=== PATIENT | female | born 1950 | race Caucasian/White ===

== ENCOUNTER 2023-01-20 14:40 | Outpatient (CLI) | payer MEDICARE, SELFPAY ==
--- NOTE | 2023-01-20 14:53 | CTR_ITS ---
PROCEDURE INFORMATION: Exam: CT Chest With Contrast; Diagnostic Exam date and time: 01/20/2023 3:43 PM Age: 72 years old Clinical indication: Other: 40 lbs wt loss in 2 months; Additional info: Unintentional weight loss TECHNIQUE: Imaging protocol: Diagnostic computed tomography of the chest with contrast. Radiation optimization: All CT scans at this facility use at least one of these dose optimization techniques: automated exposure control; mA and/or kV adjustment per patient size (includes targeted exams where dose is matched to clinical indication); or iterative reconstruction. Contrast material: OMNI 350; Contrast volume: 95 ml; Contrast route: INTRAVENOUS (IV); REPORTING DATA: Count of CT and Cardiac NM exams in prior 12 months: This patient has received 0 known CTs and 0 known cardiac nuclear medicine studies in the 12 months prior to the current study. COMPARISON: CR XR chest 2V* [id number] 12/31/2022 10:37 AM RADIATION DOSE METRICS: Total DLP (mGy-cm): 194.7 FINDINGS: Lungs: Minor atelectatic changes left lingula otherwise lung plasencia are aerated and clear. No suspicious nodules masses or infiltrates. Pleural spaces: Unremarkable. No pneumothorax. No pleural effusion. Heart: Heart is not significantly enlarged. There are mild calcifications of the coronary artery. No significant pericardial effusion. Lymph nodes: Scattered small mediastinal lymph nodes likely benign by size criteria. No significant hilar or axillary lymphadenopathy. Vasculature: Diffuse atherosclerotic changes of the thoracic aorta with calcified and noncalcified plaque. No aortic aneurysm. Bones/joints: Moderate degenerative changes mid lower thoracic spine. Indistinct sclerotic bone lesion lateral aspect left 6th rib best seen in the sagittal projection possibly posttraumatic in nature but otherwise nonspecific. Soft tissues: Unremarkable. CT/CT chest w con* [id number] IMPRESSION: 1. No evidence of intrathoracic malignancy. 2. Small indistinct sclerotic bone lesion left 6th rib possibly posttraumatic in nature. In view of patient's history consider follow-up nonemergent bone scan for further assessment.
[2023-01-20] MEDS: iohexol 350 mg/mL 500 mL Btl (per mL) IV (15:48)
== END 2023-01-20 14:41 | disposition home or self-care (01) ==
PROVIDERS: Absent Provider Nurse Practitioner Family; Visit Provider Nurse Practitioner Family
DX: R63.4 Abnormal weight loss (principal); M89.9 Disorder of bone, unspecified
CPT/HCPCS: 71260; Q9967

== ENCOUNTER 2025-03-10 21:31 | Inpatient (IN) | payer MEDICARE, SELFPAY ==
[2025-03-10 21:33] VITALS: BP 169/84; PULSE 96; RESP 18; TEMP 36.7; O2SAT 93; BMI 26.5
[2025-03-10 22:04] LABS: Basophils # 0.1 10^3/uL (0.0-0.1); Basophils % 0.5 %; Eosinophils # 0.1 10^3/uL (0.0-0.8); Eosinophils % 0.7 %; Lymphocytes # 1.9 10^3/uL (0.8-4.8); Mean Corpuscular HGB Conc 33.3 g/dL (30-55); Mean Corpuscular Hemoglobin 32.8 pg (27-33); Mean Corpuscular Volume 98.3 fl (85-98); Mean Platelet Volume 10.1 fL (7.4-10.4); Monocytes % 10.7 %; Neutrophils # 6.12 10^3/uL (1.8-7.7); Neutrophils % 66.8 %; Nucleated Red Blood Cells % 0 %; Platelet Count 223 10^3/cmm (157-399); Red Blood Count 4.58 10^6/uL (3.85-5.65); Red Cell Distribution Width 14.8 % (12.1-15.1); White Blood Count 9.16 10^3/uL (3.29-11.43)
[2025-03-10 22:18] LABS: Alanine Aminotransferase 9 U/L (0-33); Alkaline Phosphatase 110 U/L (35-105); Aspartate Amino Transferase 23 U/L (0-32); Blood Urea Nitrogen 9 mg/dL (8-23); Calcium 9.1 mg/dL (8.5-10.5); Carbon Dioxide 25 mmol/L (22-29); Chloride 94 mmol/L (98-107); Creatinine Clr Calc Pharmacy 56.5641; Globulin 3.1 g/dL (1.3-4.6); Glucose 102 mg/dL (65-115); Lipase 24 U/L (13-60); Osmolality Calculated 271 mOsm/kg (285-295); Sodium 131 mmol/L (136-145); Total Bilirubin 0.3 mg/dL (0.15-1.2); Total Protein 7.1 g/dL (6.6-8.7)
--- NOTE | 2025-03-10 22:38 | ED_ITS ---
Documented by User: Whitney Godoy MD 03/10/25 22:43 HPI - Nausea/Vomiting/Diarrhea 2 General: Chief complaint: Nausea/Vomiting/Diarrhea Stated complaint: n/v believes reaction to meds Time Seen by Provider: 03/10/25 22:25 Source: patient Mode of arrival: ambulatory Limitations: no limitations History of Present Illness: 74-year-old female states that she taken some sfzo-wfo-ydonhiq nerve pills last night called eladiay she also ate some chili states that since then she has had some abdominal cramping along with vomiting. She denies any pain denies any fever or diarrhea denies any worse or improving factors. Associated nausea: Yes Associated symtoms: Reports nausea; Denies chest pain or headache(s) Related Data Allergies Allergy/AdvReac Type Severity Reaction Status Date / Time No Known Allergies Allergy Verified 03/10/25 21:44 Review of Systems 2 Const: Denies: fever(s), chills, body aches or change in appetite ENMT: Denies: throat pain or dental pain Card: Denies: chest pain Resp: Denies: dyspnea GI: Reports: nausea and vomiting; Denies: abdominal pain or diarrhea Musc: Denies: neck pain or back pain Skin/Breast: Denies: rash Neuro: Denies: headache(s) Physical Exam 2 Const: COMMON NORMALS: no acute distress, patient oriented x3 and healthy appearing HENMT: COMMON NORMALS: normocephalic and atraumatic HEAD & SCALP: n ormocephalic and atraumatic Eye: COMMON NORMALS: conjunctivae normal CONJUNCTIVA: Yes conjunctivae normal Neck/C-Spine: COMMON NORMALS: full ROM and supple Chest: COMMONS NORMALS: normal inspection of the chest Resp: COMMON NORMALS: normal respiratory effort Cardio: COMMON NORMALS: regular rate, regular rhythm and No murmurs present (Cardio) RATE: regular rate RHYTHM: regular rhythm GI: COMMON NORMALS: Normal to inspection, nondistended, normoactive bowel sounds present, Soft to palpation, non-tender and no masses PALPATION: Yes Soft to palpation Extremity: COMMON NORMALS: normal to inspection and full ROM Neuro: COMMON NORMALS: patient oriented x3, moves all extremities and no focal motor deficits Psych: COMMON NORMALS: mental status grossly normal, Normal thought process present and cooperative THOUGHT PROCESS: Normal thought process present Skin: COMMON NORMALS: no rashes or lesions noted and no wounds GENERAL SKIN EXAM: no rashes or lesions noted Course 2 Vital Signs: Vital signs: Vital Signs Temperature 98.1 F 03/10/25 21:33 Pulse Rate 87 03/11/25 00:46 Respiratory Rate 16 03/11/25 00:46 Blood Pressure 130/85 03/11/25 00:46 Pulse Oximetry 93 03/11/25 00:46 Oxygen Delivery Me thod Nasal Cannula 03/11/25 00:46 Oxygen Flow Rate 2 03/11/25 00:46 MDM - Nausea/Vomiting/Diarrhea Lab Data 03/10/25 21:55 03/10/25 21:55 Radiology Impressions Abdomen/Pelvis CT 03/10/25 22:57 IMPRESSION: 1. No acute abdominopelvic findings. 2. Bilateral nonobstructive nephrolithiasis. 3. 8 mm hypodensity at the left ventricular apex could represent thrombus. Consider echocardiogram. 4. Additional chronic and incidental findings as above, to include atherosclerosis and colonic diverticulosis. Laboratory Results WBC 9.16 10^3/uL (3.29-11.43) 03/10/25 21:55 RBC 4.58 10^6/uL (3.85-5.65) 03/10/25 21:55 Hgb 15.00 g/dL (11.27-16.99) 03/10/25 21:55 Hct 45.0 % (36-47) 03/10/25 21:55 MCV 98.3 fl (85-98) H 03/10/25 21:55 MCH 32.8 pg (27-33) 03/10/25 21:55 MCHC 33.3 g/dL (30-55) 03/10/25 21:55 RDW 14.8 % (12.1-15.1) 03/10/25 21:55 Plt Count 223 10^3/cmm (157-399) 03/10/25 21:55 MPV 10.1 fL (7.4-10.4) 03/10/25 21:55 Neut % (Auto) 66.8 % 03/10/25 21:55 Lymph % (Auto) 21.0 % 03/10/25 21:55 [place] % (Auto) 10.7 % 03/10/25 21:55 Eos % (Auto) 0.7 % 03/10/25 21:55 Baso % (Auto) 0.5 % 03/10/25 21:55 Neut # (Auto) 6.12 10^3/uL (1.8-7.7) 03/10/25 21:55 Lymph # (Auto) 1.9 10^3/uL (0.8-4.8) 03/10/25 21:55 [place] # (Auto) 1.0 10^3/uL (0.2-0.9) H 03/10/25 21:55 Eos # (Auto) 0.1 10^3/uL (0.0-0.8) 03/10/25 21:55 Baso # (Auto) 0.1 10^3/uL (0.0-0.1) 03/10/25 21:55 Nucleated RBC % (auto) 0 % 03/10/25 21:55 Nucleated RBCs # 0.0 /100WBC 03/10/25 21:55 Sodium 131 mmol/L (136-145) L 03/10/25 21:55 Potassium 4.0 mmol/L (3.5-5.1) 03/10/25 21:55 Chloride 94 mmol/L (98-107) L 03/10/25 21:55 Carbon Dioxide 25 mmol/L (22-29) 03/10/25 21:55 Anion Gap 16.0 (5-19) 03/10/25 21:55 BUN 9 mg/dL (8-23) 03/10/25 21:55 Creatinine 0.6 mg/dL (0.5-0.9) 03/10/25 21:55 GFR Calculation Not Reportable 03/10/25 21:55 Glucose 102 mg/dL (65-115) 03/10/25 21:55 Calculated Osmolality 271 mOsm/kg (285-295) L 03/10/25 21:55 Calcium 9.1 mg/dL (8.5-10.5) 03/10/25 21:55 Total Bilirubin 0.3 mg/dL (0.15-1.2) 03/10/25 21:55 AST 23 U/L (0-32) 03/10/25 21:55 ALT 9 U/L (0-33) 03/10/25 21:55 Alkaline Phosphatase 110 U/L (35-105) H 03/10/25 21:55 Total Protein 7.1 g/dL (6.6-8.7) 03/10/25 21:55 Albumin 4.0 g/dL (3.5-5.2) 03/10/25 21:55 Globulin 3.1 g/dL (1.3-4.6) 03/10/25 21:55 Lipase 24 U/L (13-60) 03/10/25 21:55 Discharge Plan Discharge Patient Disposition: Placed in Observation Clinical Impression: Acute thrombus of left ventricle, Gastroenteritis Coding Level of Care Code ED Ingot Header for Chg Fwd Documented by User: Sanju Condon MD 03/11/25 01:33 HPI - Nausea/Vomiting/Diarrhea 2 General: Chief complaint: Nausea/Vomiting/Diarrhea Stated complaint: n/v believes reaction to meds Time Seen by Provider: 03/10/25 22:25 Related Data Allergies Allergy/AdvReac Type Severity Reaction Status Date / Time No Known Allergies Allergy Verified 03/10/25 21:44 Course 2 Vital Signs: Vital signs: Vital Signs Temperature 98.1 F 03/10/25 21:33 Pulse Rate 87 03/11/25 00:46 Respiratory Rate 16 03/11/25 00:46 Blood Pressure 130/85 03/11/25 00:46 Pulse Oximetry 93 03/11/25 00:46 Oxygen Delivery Me thod Nasal Cannula 03/11/25 00:46 Oxygen Flow Rate 2 03/11/25 00:46 MDM - Nausea/Vomiting/Diarrhea Medical Decision Making Patient presents emerged part with complaint of gastroenteritis-like symptoms with midepigastric abdominal pain. His been having nausea and vomiting and diarrhea. Had a CT of the chest abdomen pelvis performed that showed an incidental finding of a left ventricular thrombus. Echocardiogram was performed and does indeed appear to be positive for thrombus per my interpretation. Do not have official cardiology read on the echo back yet but we will go and start patient on heparin and admit patient to the hospitalist until can be further evaluated. Lab Data 03/10/25 21:55 03/10/25 21:55 Radiology Impressions Abdomen/Pelvis CT 03/10/25 22:57 IMPRESSION: 1. No acute abdominopelvic findings. 2. Bilateral nonobstructive nephrolithiasis. 3. 8 mm hypodensity at the left ventricular apex could represent thrombus. Consider echocardiogram. 4. Additional chronic and incidental findings as above, to include atherosclerosis and colonic diverticulosis. Laboratory Results WBC 9.16 10^3/uL (3.29-11.43) 03/10/25 21:55 RBC 4.58 10^6/uL (3.85-5.65) 03/10/25 21:55 Hgb 15.00 g/dL (11.27-16.99) 03/10/25 21:55 Hct 45.0 % (36-47) 03/10/25 21:55 MCV 98.3 fl (85-98) H 03/10/25 21:55 MCH 32.8 pg (27-33) 03/10/25 21:55 MCHC 33.3 g/dL (30-55) 03/10/25 21:55 RDW 14.8 % (12.1-15.1) 03/10/25 21:55 Plt Count 223 10^3/cmm (157-399) 03/10/25 21:55 MPV 10.1 fL (7.4-10.4) 03/10/25 21:55 Neut % (Auto) 66.8 % 03/10/25 21:55 Lymph % (Auto) 21.0 % 03/10/25 21:55 [place] % (Auto) 10.7 % 03/10/25 21:55 Eos % (Auto) 0.7 % 03/10/25 21:55 Baso % (Auto) 0.5 % 03/10/25 21:55 Neut # (Auto) 6.12 10^3/uL (1.8-7.7) 03/10/25 21:55 Lymph # (Auto) 1.9 10^3/uL (0.8-4.8) 03/10/25 21:55 [place] # (Auto) 1.0 10^3/uL (0.2-0.9) H 03/10/25 21:55 Eos # (Auto) 0.1 10^3/uL (0.0-0.8) 03/10/25 21:55 Baso # (Auto) 0.1 10^3/uL (0.0-0.1) 03/10/25 21:55 Nucleated RBC % (auto) 0 % 03/10/25 21:55 Nucleated RBCs # 0.0 /100WBC 03/10/25 21:55 Sodium 131 mmol/L (136-145) L 03/10/25 21:55 Potassium 4.0 mmol/L (3.5-5.1) 03/10/25 21:55 Chloride 94 mmol/L (98-107) L 03/10/25 21:55 Carbon Dioxide 25 mmol/L (22-29) 03/10/25 21:55 Anion Gap 16.0 (5-19) 03/10/25 21:55 BUN 9 mg/dL (8-23) 03/10/25 21:55 Creatinine 0.6 mg/dL (0.5-0.9) 03/10/25 21:55 GFR Calculation Not Reportable 03/10/25 21:55 Glucose 102 mg/dL (65-115) 03/10/25 21:55 Calculated Osmolality 271 mOsm/kg (285-295) L 03/10/25 21:55 Calcium 9.1 mg/dL (8.5-10.5) 03/10/25 21:55 Total Bilirubin 0.3 mg/dL (0.15-1.2) 03/10/25 21:55 AST 23 U/L (0-32) 03/10/25 21:55 ALT 9 U/L (0-33) 03/10/25 21:55 Alkaline Phosphatase 110 U/L (35-105) H 03/10/25 21:55 Total Protein 7.1 g/dL (6.6-8.7) 03/10/25 21:55 Albumin 4.0 g/dL (3.5-5.2) 03/10/25 21:55 Globulin 3.1 g/dL (1.3-4.6) 03/10/25 21:55 Lipase 24 U/L (13-60) 03/10/25 21:55 XR interpretation done by ED provider, pending radiology final review Discharge Plan Discharge Patient Disposition: Placed in Observation Clinical Impression: Acute thrombus of left ventricle, Gastroenteritis Coding Level of Care Code ED Ingot Header for Keenan Lima
[2025-03-10] MEDS: ondansetron 2 mg/ML SDV 2 mL 4 MG IVP (22:41)
[2025-03-10 22:43] VITALS: BP 144/84; PULSE 78; O2SAT 91
[2025-03-10] MEDS: sodium chloride 0.9% 1,000 ML 999 ML IV (22:43)
--- NOTE | 2025-03-10 22:57 | CTR_ITS ---
PROCEDURE INFORMATION: Exam: CT Abdomen And Pelvis With Contrast Exam date and time: 03/10/2025 11:40 PM Age: 74 years old Clinical indication: Nausea and vomiting; Abdominal pain; Generalized; Diffuse abd pain with n/v. TECHNIQUE: Imaging protocol: Computed tomography of the abdomen and pelvis with contrast. Radiation optimization: All CT scans at this facility use at least one of these dose optimization techniques: automated exposure control; mA and/or kV adjustment per patient size (includes targeted exams where dose is matched to clinical indication); or iterative reconstruction. Contrast material: OMNI 350; Contrast volume: 100 ml; Contrast route: INTRAVENOUS (IV); COMPARISON: CT chest w con* [id number] 01/20/2023 3:43 PM RADIATION DOSE METRICS: Total DLP (mGy-cm): 567.11 FINDINGS: Lungs: Mild subsegmental atelectasis versus scarring of the imaged lower lungs. Heart: 8 mm hypodensity at the left ventricular apex on axial image 3 of series 3. Coronary arteries: Coronary artery calcification. Liver: Focal hypodensity adjacent to the fissure for the ligamentum teres likely represents 3rd inflow phenomenon or focal fat. Otherwise unremarkable. Gallbladder and biliary ducts: Normal. No calcified stones. No ductal dilation. Pancreas: Normal. No ductal dilation. Spleen: Normal. No splenomegaly. Adrenal glands: Normal. No mass. Kidneys and ureters: Small bilateral renal calculi without hydronephrosis. Otherwise unremarkable. Stomach and bowel: No bowel dilatation to suggest obstruction. Colonic diverticulosis without findings of diverticulitis. Appendix: No evidence of appendicitis. Intraperitoneal space: Unremarkable. No free air. No significant fluid collection. Vasculature: Heavy systemic atherosclerosis without abdominal aortic aneurysm. Lymph nodes: Unremarkable. No enlarged lymph nodes. Urinary bladder: Unremarkable as visualized. Reproductive: Unremarkable as visualized. Bones/joints: No acute fracture. Degenerative changes along the spine and sacroiliac joints. Soft tissues: Unremarkable. CT/CT abdomen pelvis w con* [id number] IMPRESSION: 1. No acute abdominopelvic findings. 2. Bilateral nonobstructive nephrolithiasis. 3. 8 mm hypodensity at the left ventricular apex could represent thrombus. Consider echocardiogram. 4. Additional chronic and incidental findings as above, to include atherosclerosis and colonic diverticulosis.
[2025-03-10 23:00] VITALS: BP 145/83; PULSE 78; O2SAT 91
[2025-03-10] MEDS: iohexol 350 mg/mL 500 mL Btl (per mL) IV (23:44)
[2025-03-11] VITALS (57 sets, daily range): BP systolic 120–176; BP diastolic 57–110; PULSE 64–101; RESP 12–34; TEMP 36.9–37; O2SAT 82–99
[2025-03-11] MEDS: morphine 4 mg/mL SDV 1 mL IVP (00:06)
--- NOTE | 2025-03-11 00:23 | USCV_ITS ---
Yvette Valdez Age: 74 Gender: F : 1950 Exam Date: 03/11/2025 01:07 Ordering Phys: Sanju Condon MD Technologist: CHARMAINE [place]am [place] [facility] [place]ication: Hypodensity on CT in LV BP: 117 / 72 HR: 63 Rhythm: Sinus Technical Quality: Adequate MEASUREMENTS (Male / Female) Normal Values 2D ECHO LV Diastolic Diameter PLAX 4.7 cm 4.2 - 5.9 / 3.9 - 5.3 cm IVS Diastolic Thickness 1.1 cm 0.6 - 1.0 / 0.6 - 0.9 cm IVS Systolic Thickness 1.3 cm LVPW Diastolic Thickness 1.3 cm 0.6 - 1.0 / 0.6 - 0.9 cm LVPW Systolic Thickness 1.6 cm LVOT Diameter 1.9 cm LV Ejection Fraction 2D Teich 51.8 % LV Ejection Fraction MOD 4C 51.8 % LV Ejection Fraction MOD 2C 49.6 % LV Ejection Fraction 2C AL 49.0 % LA Diameter 3.6 cm RA Systolic Volume 4C AL 28.0 ml RA Systolic Volume 4C MOD 26.0 ml LA Sys Volume AL 67.2 cm cubed LA Sys Volume Index AL 38.5 cm cubed/m squared Aorta at Sinotubular Diameter 2.3 cm IVC Diameter 1.3 cm M-MODE LA Ao Ratio MM 1.3 AV Cusp Separation MM 1.2 cm DOPPLER AV Peak Velocity 117.0 cm/s LVOT Peak Velocity 88.0 cm/s AV Area Cont Eq vti 2.4 cm squared AV Area Cont Eq pk 2.2 cm squared MV Peak Velocity 87.0 cm/s MV Area PHT 5.1 cm squared Mitral E to A Ratio 0.6 TR Peak Velocity 85.0 cm/s TR Peak Gradient 2.9 mmHg TV Peak E Velocity 91.0 cm/s PV Peak Velocity 82.0 cm/s FINDINGS Left Ventricle Mild concentric ventricular hypertrophy with an LV ejection fraction of 50%. A globular pedunculated mass at the LV apex measuring 1.1 x 1.2 cm with a heterogeneous texture. Mild hypokinesia of the basal inferior wall segment.Grade I/IV diastolic dysfunction (abnormal relaxation filling pattern), normal to mildly elevated filling pressures. Right Ventricle Normal right ventricular size and systolic function. Right Atrium Normal right atrial size. Left Atrium Mildly increased left atrial size. Mitral Valve Mildly thickened mitral valve. Aortic Valve Thickened aortic valve. Tricuspid Valve No gross abnormalities noted Pulmonic Valve No gross abnormalities noted Pericardium No pericardial effusion. Aorta Normal aortic annulus size. IVC Normal inferior vena cava. CONCLUSIONS Mild concentric ventricular hypertrophy with an LV ejection fraction of 50%. Mild hypokinesia of the basal inferior wall segment. 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 Grade I/IV diastolic dysfunction (abnormal relaxation filling pattern), normal to mildly elevated filling pressures. Minimally thickened aortic and mitral valves. Mild left atrial enlargement. No similar previous studies are available for comparison Dr Maik Steinberg MD [facility] (Electronically Signed) Final Date: 11 Mar 2025 08:36 S
--- NOTE | 2025-03-11 01:30 | PM.HP ---
Providers/Chief Complaint Primary Care Provider: CLAUDIA Frank Chief Complaint: n/v believes reaction to meds History of Present Illness Yvette Valdez is a 74 year old female with a past medical history significant for neuropathy, COPD, and tobacco use disorder who presents to the emergency department with nausea/vomiting and abdominal cramps with onset yesterday. She reports she started new medication earlier this week that was emdt-zdy-bdhxbph called Nervive from [employer]. She attributes her symptoms to starting this new medication. She also endorses associated increased stress and anxiety associated with being the caregiver of a family member. She denies any fevers, chills, dysphagia, weakness or sensation changes. She endorses severe neuropathy at baseline. In the emergency department, labs revealed hyponatremia. CT abdomen pelvis showed no acute abdominal pelvic findings however did show incidentally found 8 mm hypodensity of the left ventricular apex which could be thrombus. Patient denies known history of heart disease, congestive heart failure, or prior hypercoagulable disorder. Cardiology consulted by ED provider recommending echocardiography. Review of Systems Narrative: A complete review of systems was obtained and is negative except as stated in HPI. Medications/Allergies Allergies Allergy/AdvReac Type Severity Reaction Status Date / Time No Known Allergies Allergy Verified 03/10/25 21:44 PFSH Acute PFSH: Medical History Tobacco use disorder COPD (chronic obstructive pulmonary disease) Neuropathy Surgical History History of vaginal delivery Family History Mother Dementia Sister Peripheral vascular disease Social History Smoking and tobacco/nicotine status: current every day tobacco/nicotine user Alcohol intake: former Substance/Drug Use: unknown Vitals/I&O/Wt Last Vital Signs Temp 98.1 F 03/10/25 21:33 Pulse 87 03/11/25 00:46 Resp 16 03/11/25 00:46 BP 130/85 03/11/25 00:46 Pulse Ox 93 03/11/25 00:46 O2 Del Method Nasal Cannula 03/11/25 00:46 O2 Flow Rate 2 03/11/25 00:46 03/10/25 03/10/25 03/11/25 14:59 22:59 06:59 Intake Total 0 / 0 Balance 0 / 0 Weight last 48 hrs Weight 65.771 kg Physical Exam Narrative: General: Patient is awake. Appears very anxious. Restless. Head: Normocephalic. Atraumatic. EOM intact. Neck: No JVD. Cardiovascular: RRR. No gallops. Hypertensive. Lungs: Clear to auscultation, no use of accessory muscles, no crackles or wheezes. Skin: No jaundice. No rashes. Abdomen: Normal bowel sounds, abdomen soft and nontender. Extremities: No cyanosis or clubbing. Musculoskeletal: No swollen or erythematous joints. Neurological: Moves all 4 extremities. No myoclonus. Data 03/10/25 21:55 03/10/25 21:55 A&P Assessment and plan (1) Acute thrombus of left ventricle: (2) Nausea & vomiting: (3) Medication side effect: (4) Hyponatremia: (5) COPD (chronic obstructive pulmonary disease): (6) Tobacco use disorder: (7) Neuropathy: Plan Suspected LV thrombus - Incidentally found - Start heparin drip - Echo read is pending - Continuous telemetry monitoring - Monitor neurological status - Cardiology has been consulted, appreciate recommendations Nausea/vomiting Hypovolemic hyponatremia Suspected medication side effect - Hold hmxn-qeo-jjyipxc nerve medication - Antiemetics as needed COPD without exacerbation - DuoNebs as needed Tobacco use disorder - Would benefit from cessation Neuropathy - Plan to continue home med DVT ppx: Heparin drip Code: Full PDMP PDMP Reviewed: Not Reviewed Attestations Medical Necessity Statement*: Patient presents with nausea and vomiting, incidentally found to have suspected LV thrombus with expected hospitalization not to cross 2 midnights for echo, heparin drip, and cardiology evaluation. Coding Level of Care Code Acute Code for [facility] Fwd Diagnoses Acute thrombus of left ventricle I24.0 Nausea & vomiting R11.2 Medication side effect T88.7XXA Hyponatremia E87.1 COPD (chronic obstructive pulmonary disease) J44.9 Tobacco use disorder F17.200 Neuropathy G62.9
[2025-03-11] MEDS: heparin 5,000 unit/mL INJ 1 mL IVP (02:30)
[2025-03-11] MEDS: heparin drip 25,000 UNIT/500 ML PREMIX 18 UNIT IV (02:31)
--- NOTE | 2025-03-11 03:13 | ECG_ITS ---
Possible [employer] [place] Test Date: 2025-03-11 Pat Name: Yvette Valdez Department: Room: [facility] Gender: Female Litigation Legal Assistant: : 1950 Requested By: [place] By[place] Order Number: [id number] Reading MD: DAISY LAGOS Measurements Intervals [place] Rate: 67 P: 48 UT: 129 QRS: 23 QRSD: 82 T: 24 QT: 428 QTc: 452 Interpretive Statements SINUS RHYTHM WITH OCCASIONAL ECTOPIC PREMATURE COMPLEXES No previous ECG available for comparison Electronically Signed On 03-11-2025 16:21:13 CDT by DAISY LAGOS [email or web address]
[2025-03-11] MEDS: LORazepam 1 mg Tablet PO ×2 (03:52→13:44)
--- NOTE | 2025-03-11 04:08 | PC.NURSE ---
Patient arrived to unit moaning and complaining of severe chest pain and shaking in the stomach patient is very anxious and tearful, EKG obtained. Dr. Akhtar notified and ordered 1mg Po ativan Q4 PRN.
--- NOTE | 2025-03-11 07:42 | PC.NURSE ---
some confusion noted up to bsc had taken o2 off and noted sats down to 73 and placed back on o2 2lnc
--- NOTE | 2025-03-11 08:38 | CTR_ITS ---
PROCEDURE INFORMATION: Exam: CT Head Without Contrast Exam date and time: 03/11/2025 9:08 AM Age: 74 years old Clinical indication: Altered mental status/memory loss; Additional info: AMS TECHNIQUE: Imaging protocol: Computed tomography of the head without contrast. Radiation optimization: All CT scans at this facility use at least one of these dose optimization techniques: automated exposure control; mA and/or kV adjustment per patient size (includes targeted exams where dose is matched to clinical indication); or iterative reconstruction. COMPARISON: No relevant prior studies available. RADIATION DOSE METRICS: Total DLP (mGy-cm): 1017.68 FINDINGS: Brain: There are bilateral periventricular white matter and centrum semiovale hypodensities, consistent with chronic ischemic small vessel disease. Left occipital lobe encephalomalacia, from prior insult. Partially calcified right frontal convexity extra-axial lesion measuring 1.3 cm, likely representing a meningioma. No recent infarct, intracranial bleed or mass effect. Cerebral ventricles: No ventriculomegaly. Paranasal sinuses: Visualized sinuses are unremarkable. No fluid levels. Mastoid air cells: Visualized mastoid air cells are well aerated. Bones: Unremarkable. No acute fracture. Soft tissues: Unremarkable. CT/CT head wo con* [id number] IMPRESSION: No large territorial infarct or intracranial bleed.
--- NOTE | 2025-03-11 08:59 | PC.PHAR ---
Addendum entered by Nayeli Ramos 03/11/25 09:14: Research shows pt did machine pecan picker a 90 day supply on November 06 and is overdue to fill. Pharmacy states pt did not machine pecan picker last fill in January due to insurance requiring a copay. Returned to her chart with notes added. Original Note: Pt had Duloxetine 60mg daily, on his med list from 01/12/25-never picked up due to not covered on insurance. Removed from chart.
[2025-03-11 09:11] LABS: Erythrocyte Sedimentation Rate 3 mm/hr (0-15)
[2025-03-11 09:25] LABS: Partial Thromboplastin Time 62.9 SECONDS (23.9-36.7)
[2025-03-11 09:35] LABS: C Reactive Protein 3.6 mg/L (0.0-4.9)
[2025-03-11 09:43] LABS: Procalcitonin 0.61 ng/mL (0-0.5)
--- NOTE | 2025-03-11 09:57 | PC.NURSE ---
to ct this am , family in for visit
--- NOTE | 2025-03-11 11:29 | PC.NURSE ---
brother and nephew voice concern about pt very anxious related drinks whiskey daily and smokes thc daily questioning some withdrawl
--- NOTE | 2025-03-11 11:48 | USCV_ITS ---
Yvette Valdez Age: 74 Gender: F : 1950 Exam Date: 03/11/2025 16:43 Ordering Phys: Maik Steinberg MD ([email or web address]) Technologist: LISET Exam Location: [facility] – [place] Indication: pad Risk Factors: Previous Vascular Surgery: RIGHT LEFT BP: 115.0 / 80.00 BP: 108.0/ 83.00 0 0 Waveform Velocity (cm/s) Velocity (cm/s) Waveform Monophasic 48.0 Iliac Prox 46.0 Monophasic Monophasic 43.0 Iliac Mid 42.0 Monophasic Monophasic 34.0 Iliac Distal 36.0 Monophasic Monophasic 38.0 VEHICLE DELIVERY WORKER 34.0 Monophasic Monophasic 32.0 SFA Prox 32.0 Monophasic Monophasic 30.0 SFA Mid 36.0 Monophasic Monophasic 15.0 SFA Dist 30.0 Monophasic Monophasic 19.0 POP 18.0 Monophasic Monophasic 14.0 SURGERY MANAGER 19.0 Monophasic Monophasic 38.0 DPA 19.0 Monophasic 0.5 AUDREY 0.5 FINDINGS Monophasic waveforms bilaterally Normal velocity Doppler waveforms bilaterally Resting AUDREY of 0.5 bilaterally CONCLUSIONS 1. Abnormal resting ABIs of 0.5 bilaterally suggesting severe peripheral artery disease 2. Abnormal Doppler waveforms and velocities suggesting aortoiliac disease. No similar previous studies are available for comparison Dr Maik Steinberg MD [facility] (Electronically Signed) Final Date: 11 Mar 2025 18:01 S
--- NOTE | 2025-03-11 12:05 | PM.CONSULT ---
Providers/Reason For Consult Consulting Physician/Specialty*: VANESSA Steinberg MD/cardiology Reason for Consult*: Patient with LV apical mass Attending Physician: Artem Allison MD Primary Care Provider: CLAUDIA Frank History of Present Illness History of Present Illness Yvette Valdez is a 74 year old female is admitted to the hospital through the emergency room where she presented with complaints of epigastric pain, nausea and vomiting. She had a CT of the chest and abdomen which revealed a possible thrombus in the LV apex. Subsequent echocardiogram revealed LV apical mass, possibly myxoma. Cardiology consult was requested for further cardiac evaluation recommendations. This patient has a history of borderline diabetes. No history for coronary disease, myocardial infarction or congestive heart failure. Never had any thromboembolic events. No history for CVA. She has a longstanding history of smoking abuse, alcohol abuse and marijuana abuse. She used to be a heavy alcoholic. Lately she drinks [place] mist 2- drinks in the night. She smokes at least 1 pack of cigarettes a day along with the cannabis. She has a history of chronic pain? From peripheral neuropathy. She could not take gabapentin. Yesterday she took some [id number] pain medication along with the pregabalin. According to her, she started having nausea and vomiting afterwards. She had the pain in the epigastric area from the cough. Never had any chest pain. Her sister had severe peripheral artery disease and multiple heart attacks. Details are not available. Denies any fever, chills or cough. She has some amount of dyspnea on exertion. No orthopnea or PND Her echocardiogram revealed a hypokinetic basal inferior wall segment with an overall ejection fraction of around 50%. Review of Systems Narrative: CONSTITUTIONAL: No fever or chills. EYES: No blurring of vision or other visual disturbances lately. ENT: No hoarseness of voice, auditory disturbances or sore throat. CARDIOVASCULAR: As mentioned above. RESPIRATORY: COPD? GASTROINTESTINAL: No hematemesis or melena. GENITOURINARY: No dysuria or hematuria. INTEGUMENTARY: No skin rashes or history of skin cancer. NEURO: She has intentional tremor PSYCHIATRIC: No history of psychosis or major depression. HEMATOLOGIC: No bleeding disorders or significant anemia. ENDOCRINE: History of diet-controlled diabetes MUSCULOSKELETAL: No recent joint pain or swelling. ALLERGY/IMMUNOLOGY: As mentioned above. Medications/Allergies Home Medications ?Medication ?Instructions ?Recorded ?Confirmed ?Last Taken ?Type albuterol sulfate 90 mcg/actuation 2 puff inhalation Q4H PRN cough or 03/11/25 03/11/25 Unknown History aerosol inhaler wheezing amlodipine 2.5 mg tablet 2.5 mg PO DAILY 03/11/25 03/11/25 Unknown History duloxetine 60 mg capsule,delayed 60 mg PO DAILY 03/11/25 03/11/25 Unknown History release hydroxyzine HCl 25 mg tablet 25 mg PO Q6H PRN Anxiety 03/11/25 03/11/25 Unknown History lisinopril 20 mg tablet 20 mg PO DAILY 03/11/25 03/11/25 Unknown History lovastatin 20 mg tablet 20 mg PO QPM 03/11/25 03/11/25 Unknown History omeprazole 20 mg capsule,delayed 20 mg PO DAILY 03/11/25 03/11/25 Unknown History release pregabalin 150 mg capsule 150 mg PO TID 03/11/25 03/11/25 Unknown History Allergies Allergy/AdvReac Type Severity Reaction Status Date / Time No Known Allergies Allergy Verified 03/10/25 21:44 Current Medications Generic Name Dose Route Start Last Admin Trade Name Freq PRN Reason Stop Dose Admin Heparin Sodium/Sodium Chloride 25,000 unit in 500 mls @ 0 mls/hr 03/11/25 02:00 03/11/25 02:31 Heparin Drip IV 13.68 unit/kg/hr CONT KADEN 18 mls/hr Protocol Administration Per Protocol Lorazepam 1 mg 03/11/25 03:17 03/11/25 03:52 Lorazepam 1 Mg Tablet PO 1 mg Q4H PRN Administration ANXIETY PFSH Acute PFSH: Medical History Tobacco use disorder COPD (chronic obstructive pulmonary disease) Neuropathy Surgical History History of vaginal delivery Family History Mother Dementia Sister Peripheral vascular disease Social History Smoking and tobacco/nicotine status: current every day tobacco/nicotine user Alcohol intake: former Substance/Drug Use: unknown Vitals/I&O/Wt Last Vital Signs Temp 98.4 F 03/11/25 03:11 Pulse 77 03/11/25 12:00 Resp 19 H 03/11/25 12:00 BP 121/67 03/11/25 11:45 Pulse Ox 94 03/11/25 12:00 O2 Del Method Nasal Cannula 03/11/25 07:47 O2 Flow Rate 2 03/11/25 07:47 03/10/25 03/11/25 03/11/25 22:59 06:59 14:59 Intake Total 0 / 0 1000 / 1000 Output Total 475 / 475 250 / 250 Balance 0 / 0 525 / 525 -250 / -250 Weight last 48 hrs Weight 155 lb 9.6 oz Weight 155 lb 9.6 oz Weight 145 lb Physical Exam Narrative: GENERAL: The patient is alert and oriented times three. Not in any acute distress. HEENT: No significant pallor, icterus or lymphadenopathy.Oral cavity: There are no mucous membrane lesions. NECK: Trachea appears to be central. No masses noted. No JVD or thyromegaly appreciated. RESPIRATORY: Chest is symmetrical. No intercostals muscle retraction or any accessory muscle activation. There is no chest wall tenderness. Breath sounds are heard bilaterally. No rales or rhonchi heard. No evidence of any consolidation. BREASTS: Deferred. HEART: The heart sounds are normal. No S3 or S4. Short systolic murmur in the lower sternal border. No diastolic murmurs no pericardial rub ABDOMEN: No vessel pulsations or distention. No tenderness. No organomegaly appreciated. Bowel sounds are normally heard. : Deferred. RECTAL: Deferred. LYMPHATIC: No lymphadenopathy noted in the neck. EXTREMITIES: No edema or cyanosis. No clubbing. Peripheral pulses are extremely weak both in the groin and at the ankles. MUSCULOSKELETAL: No acute joint deformities or swelling SKIN: There are no significant rashes or ecchymosis NEUROPSYCHIATRIC: The patient is alert and oriented x3. Appears to be in a good mood. No tremors or rigidity noted. Data 03/10/25 21:55 03/10/25 21:55 Other Labs: Laboratory Last Values WBC 9.16 10^3/uL (3.29-11.43) 03/10/25 21:55 RBC 4.58 10^6/uL (3.85-5.65) 03/10/25 21:55 Hgb 15.00 g/dL (11.27-16.99) 03/10/25 21:55 Hct 45.0 % (36-47) 03/10/25 21:55 MCV 98.3 fl (85-98) H 03/10/25 21:55 MCH 32.8 pg (27-33) 03/10/25 21:55 MCHC 33.3 g/dL (30-55) 03/10/25 21:55 RDW 14.8 % (12.1-15.1) 03/10/25 21:55 Plt Count Cancelled 03/11/25 01:59 MPV 10.1 fL (7.4-10.4) 03/10/25 21:55 Neut % (Auto) 66.8 % 03/10/25 21:55 Lymph % (Auto) 21.0 % 03/10/25 21:55 Gaines % (Auto) 10.7 % 03/10/25 21:55 Eos % (Auto) 0.7 % 03/10/25 21:55 Baso % (Auto) 0.5 % 03/10/25 21:55 Neut # (Auto) 6.12 10^3/uL (1.8-7.7) 03/10/25 21:55 Lymph # (Auto) 1.9 10^3/uL (0.8-4.8) 03/10/25 21:55 Gaines # (Auto) 1.0 10^3/uL (0.2-0.9) H 03/10/25 21: Eos # (Auto) 0.1 10^3/uL (0.0-0.8) 03/10/25 21:55 Baso # (Auto) 0.1 10^3/uL (0.0-0.1) 03/10/25: Nucleated RBC % (auto) 0 % 03/10/25: Nucleated RBCs # 0.0 /100WBC 03/10/25 21:55 ESR 3 mm/hr (0-15) 03/11/25 08:34 APTT 62.9 SECONDS (23.9-36.7) H 03/11/25 08:34 Sodium 131 mmol/L (136-145) L 03/10/25 21:55 Potassium 4.0 mmol/L (3.5-5.1) 03/10/25 21:55 Chloride 94 mmol/L (98-107) L 03/10/25 21:55 Carbon Dioxide 25 mmol/L (22-29) 03/10/25 21:55 Anion Gap 16.0 (5-19) 03/10/25 21:55 BUN 9 mg/dL (8-23) 03/10/25 21:55 Creatinine 0.6 mg/dL (0.5-0.9) 03/10/25 21:55 GFR Calculation Not Reportable 03/10/25 21:55 Glucose 102 mg/dL (65-115) 03/10/25 21:55 Calculated Osmolality 271 mOsm/kg (285-295) L 03/10/25 21:55 Calcium 9.1 mg/dL (8.5-10.5) 03/10/25 21:55 Total Bilirubin 0.3 mg/dL (0.15-1.2) 03/10/25 21:55 AST 23 U/L (0-32) 03/10/25 21:55 ALT 9 U/L (0-33) 03/10/25 21:55 Alkaline Phosphatase 110 U/L (35-105) H 03/10/25 21:55 C-Reactive Protein 3.6 mg/L (0.0-4.9) 03/11/25 08:34 Total Protein 7.1 g/dL (6.6-8.7) 03/10/25 21:55 Albumin 4.0 g/dL (3.5-5.2) 03/10/25 21: Globulin 3.1 g/dL (1.3-4.6) 03/10/25 21:55 Lipase 24 U/L (13-60) 03/10/25 21:55 Procalcitonin 0.61 ng/mL (0-0.5) H 03/11/25 08:34 Micro: Microbiology 03/11/25 08:34 Blood Culture - Preliminary Blood SPECIMEN COLLECTED 03/11/25 08:20 Blood Culture - Preliminary Blood SPECIMEN COLLECTED Other data: The echocardiogram from today Mild concentric ventricular hypertrophy with an LV ejection fraction of 50%. Mild hypokinesia of the basal inferior wall segment. 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 Grade I/IV diastolic dysfunction (abnormal relaxation filling pattern), normal to mildly elevated filling pressures. Minimally thickened aortic and mitral valves. Mild left atrial enlargement. No similar previous studies are available for comparison A&P Assessment and plan (1) Mass of left cardiac ventricle: Most likely this may represent a myxoma. Thrombus cannot be excluded but may clinical suspicion may be low. Patient apparently has no history for any embolic events. (2) COPD (chronic obstructive pulmonary disease): May continue on the current management. (3) Neuropathy: Continue on the current management. (4) Tobacco use disorder: Strongly advised to quit smoking. (5) Left ventricular systolic dysfunction (LVSD): Etiology is not clear. Possibility of underlying coronary disease causing LV dysfunction is a strong consideration especially in view of the multiple risk factors. This needs to be further evaluated. (6) Peripheral arterial disease: Patient seems to have significant peripheral artery disease. This needs to be further evaluated by an arterial duplex outpatient AUDREY. Plan I may do a baseline troponin T and BNP. Also may do a lipid profile Artery Doppler examination to evaluate for the peripheral artery disease Patient may be kept on IV heparin for the time being Patient may require a cardiac colorization to evaluate for underlying coronary disease before proceeding with any cardiac surgery Based on the clinical progress, further recommendations will be made. Thank for the opportunity to evaluate this patient make these recommendations. Discussed with the patient and her family detail about the findings and the management options. All their questions were answered to her satisfaction. PDMP PDMP Reviewed: Not Reviewed Coding Level of Care Code Acute Code for Chg Fwd Diagnoses Mass of left cardiac ventricle I51.89 Chronic obstructive pulmonary disease, unspecified COPD type J44.9 COPD type: unspecified COPD Neuropathy G62.9 Tobacco use disorder F17.200 Left ventricular systolic dysfunction (LVSD) I51.89 Peripheral arterial disease I73.9
[2025-03-11] MEDS: thiamine 100 mg/mL 2mL SDV IM (12:25)
[2025-03-11] MEDS: chlordiazePOXIDE 25 mg Capsule PO (12:26)
--- NOTE | 2025-03-11 13:46 | PC.NURSE ---
upto bsc voided slight tremor noted and anxious at this time ativan given po
--- NOTE | 2025-03-11 14:31 | P.PN_ITS ---
Subjective 2 Subjective: Patient was seen this morning, she is alert oriented x 3, following all commands, denies any fevers, chills, cough, nausea, vomiting, denies any focal weakness, no chest pain, no palpitations, we discussed her echocardiogram findings, will discuss with general surgery, plan on continuing anticoagulant therapy, family does report history of alcoholism, will start CIWA protocol, family reports heavy alcoholism, will start Librium to prevent severe alcohol withdrawals Vitals/I&O/Wt Last Vital Signs Temp 98.4 F 03/11/25 03:11 Pulse 77 03/11/25 12:00 Resp 19 H 03/11/25 12:00 BP 121/67 03/11/25 11:45 Pulse Ox 94 03/11/25 12:00 O2 Del Method Nasal Cannula 03/11/25 07:47 O2 Flow Rate 2 03/11/25 07:47 03/10/25 03/11/25 03/11/25 22:59 06:59 14:59 Intake Total 0 / 0 1000 / 1000 222.4 / 222.4 Output Total 475 / 475 250 / 250 Balance 0 / 0 525 / 525 -27.6 / -27.6 Weight last 48 hrs Weight 70.579 kg Weight 70.579 kg Weight 65.771 kg Physical Exam 2 Const: COMMON NORMALS: no acute distress and patient oriented x3 Resp: COMMON NORMALS: normal respiratory effort, No retractions, No use of accessory muscles and clear to auscultation bilaterally AUSCULTATION: clear to auscultation bilaterally Cardio: COMMON NORMALS: regular rate, regular rhythm, S1 normal heart sound present and S2 normal heart sound present RATE: regular rate RHYTHM: r egular rhythm HEART SOUNDS: S1 normal heart sound present and S2 normal heart sound present GI: COMMON NORMALS: Normal to inspection, nondistended, normoactive bowel sounds present and non-tender Extremity: COMMON NORMALS: no pedal edema Neuro: COMMON NORMALS: patient oriented x3, CN's II-XII intact bilaterally and moves all extremities Psych: COMMON NORMALS: mental status grossly normal Data 03/10/25 21:55 03/10/25 21:55 Micro: Microbiology 03/11/25 08:34 Blood Culture - Preliminary Blood SPECIMEN COLLECTED 03/11/25 08:20 Blood Culture - Preliminary Blood SPECIMEN COLLECTED A&P Assessment and plan (1) Acute thrombus of left ventricle: (2) Nausea & vomiting: (3) Medication side effect: (4) Hyponatremia: (5) COPD (chronic obstructive pulmonary disease): (6) Tobacco use disorder: (7) Neuropathy: (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 Mild hypokinesia of the basal inferior wall segment. 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 Grade I/IV diastolic dysfunction (abnormal relaxation filling pattern), normal to mildly elevated filling pressures. Minimally thickened aortic and mitral valves. Mild left atrial enlargement. No similar previous studies are available for comparison - Incidentally found - Continue heparin drip - Echo read is pending - Continuous telemetry monitoring - Monitor neurological status, CT head - Cardiology has been consulted, appreciate recommendations Mild hypokinesia of the basal inferior wall segment - Cardiology consulted - Cardiology consulted History of alcoholism, - CIWA protocol monitor for alcohol withdrawal History of smoking Nausea/vomiting Hypovolemic hyponatremia Suspected medication side effect - Hold [id number] nerve medication - Antiemetics as needed COPD without exacerbation - DuoNebs as needed Tobacco use disorder - Would benefit from cessation Neuropathy - Continue home medications Prior history of CVA, CT imaging shows left asymptomatic encephalomalacia History of meningioma DVT ppx: Heparin drip Code: Full PDMP PDMP Reviewed: Not Reviewed Attestations 2 Medical Necessity Statement*: Patient requires hospitalization for left ventricular myxoma, mild hypokinesis left ventricle Diagnoses Acute thrombus of left ventricle I24.0 Nausea & vomiting R11.2 Medication side effect T88.7XXA Hyponatremia E87.1 COPD (chronic obstructive pulmonary disease) J44.9 Tobacco use disorder F17.200 Neuropathy G62.9 Myxoma of heart D15.1
[2025-03-11] MEDS: pregabalin 150 mg Capsule PO ×2 (15:04→20:31)
--- NOTE | 2025-03-11 17:56 | PC.NURSE ---
daughter here with [facility]ina requesting to talk to doctor .DR Allison came to talk with them and the were recording conversation on phone when asked she replied yes and Dr allison said he had given permission this time . while in room with them rozina requested copies of reports and chart explained that they need to make arrangment with medical records thursday. family also refused ptt draw at this time stated comments that they were getting misinformation . did call Dr Steinberg back to talk with them and related that information would be coming from doctors
[2025-03-11 20:11] LABS: Partial Thromboplastin Time > 250.0 SECONDS (23.9-36.7)
[2025-03-11 20:16] LABS: Chol HDL Ratio 3.84 mg/dL (0.0-4.40); Cholesterol 188 mg/dL (0-200); HDL Cholesterol 49 mg/dL (60-100); LDL Cholesterol Calculated 112 mg/dL (50-129); LDL HDL Ratio 2.29 RATIO (0.00-3.22); Triglycerides 133 mg/dL (0-150)
[2025-03-11 20:21] LABS: Troponin T (5th) Once 21 ng/L (0-10)
--- NOTE | 2025-03-11 20:30 | P.TS_ITS ---
Transfer Summary Providers Date of Admission: 03/11/25 01:29 Date of Discharge/Transfer: 03/28/25 Attending Provider at Admission: Lake Akhtar MD Attending Provider at Transfer: Artem Allison MD Primary Care Provider: CLAUDIA Frank Transfer Plans: Anticipated date of transfer: 03/28/25 . Diagnoses at Discharge Discharge Diagnosis (1) Mass of left cardiac ventricle: Status: Acute (2) COPD (chronic obstructive pulmonary disease): Status: Acute Qualifiers: COPD type: unspecified COPD Qualified Code(s): J44.9 - Chronic obstructive pulmonary disease, unspecified (3) Neuropathy: Status: Acute (4) Tobacco use disorder: Status: Acute (5) Left ventricular systolic dysfunction (LVSD): Status: Acute (6) Peripheral arterial disease: Status: Acute (7) Acute thrombus of left ventricle: Status: Acute (8) Nausea & vomiting: Status: Acute (9) Medication side effect: Status: Acute (10) Hyponatremia: Status: Acute Reason for Visit Reason for Visit n/v believes reaction to meds Hospital Course Hospital Course This is a 74-year-old female with a past medical history of neuropathy, COPD, tobacco use disorder who presents [facility] due to nausea, vomiting, abdominal cramps Patient was admitted to 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 Mild hypokinesia of the basal inferior wall segment. 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 Grade I/IV diastolic dysfunction (abnormal relaxation filling pattern), normal to mildly elevated filling pressures. Minimally thickened aortic and mitral valves. Mild left atrial enlargement. No similar previous studies are available for comparison - Incidentally found -Patient was managed with heparin drip - Patient was transferred to [facility] in [place] for concerns for left ventricular myxoma For patient's history of alcoholism, underwent alcohol withdrawal during hospitalization, she was managed with CIWA protocol, Ativan, Librium Found to have left ventricular systolic dysfunction, possible need for coronary angiography, transferred to [facility] Hypovolemic hyponatremia, section nausea vomiting, managed with IV fluids Patient was transferred 03/12/2025 at roughly 6 PM Physical Exam Const: COMMON NORMALS: no acute distress ORIENTATION/CONSCIOUSNESS: Yes awake, Yes oriented to person and Yes oriented to place; not oriented to time Resp: COMMON NORMALS: normal respiratory effort, No retractions, No use of accessory muscles and clear to auscultation bilaterally AUSCULTATION: clear to auscultation bilaterally Cardio: COMMON NORMALS: regular rate, regular rhythm, S1 normal heart sound present and S2 normal heart sound present RATE: regular rate RHYTHM: regular rhythm HEART SOUNDS: S1 normal heart sound present and S2 normal heart sound present GI: COMMON NORMALS: Normal to inspection, nondistended, normoactive bowel sounds present and non-tender Extremity: COMMON NORMALS: no pedal edema Neuro: SENSORIUM/ORIENTATION: Yes oriented to person, Yes oriented to place and No oriented to time Psych: COMMON NORMALS: mental status grossly normal TS Data Studies Completed and Pending Pending at discharge Category Date Time Status KADE Profile Rheumatology Stat Lab 03/11/25 08:34 Received Blood Culture Stat Lab 03/11/25 08:34 Results C.Diff PCR (Lab) Routine Lab 03/11/25 07:53 Ordered Complete Blood Count w/Auto AM LABS Lab 03/12/25 04:00 Ordered Complete Blood Count w/Auto AM LABS Lab 03/13/25 04:00 Ordered Complete Blood Count w/Auto AM LABS Lab 03/14/25 04:00 Ordered Comprehensive Metabolic Panel AM LABS Lab 03/12/25 04:00 Ordered Comprehensive Metabolic Panel AM LABS Lab 03/13/25 04:00 Ordered Comprehensive Metabolic Panel AM LABS Lab 03/14/25 04:00 Ordered Immunochemical Fecal OCB Routine Lab 03/11/25 07:53 Ordered Lactoferrin Routine Lab 03/11/25 07:53 Ordered Magnesium AM LABS Lab 03/12/25 04:00 Ordered Magnesium AM LABS Lab 03/13/25 04:00 Ordered Magnesium AM LABS Lab 03/14/25 04:00 Ordered OVA and Parasites, Conc and PE Routine Lab 03/11/25 07:53 Ordered Phosphorus AM LABS Lab 03/12/25 04:00 Ordered Phosphorus AM LABS Lab 03/13/25 04:00 Ordered Phosphorus AM LABS Lab 03/14/25 04:00 Ordered Platelet Count Q2D Lab 03/13/25 04:00 Ordered Platelet Count Q2D Lab 03/15/25 04:00 Ordered Salmonella / Shigella / Campy Routine Lab 03/11/25 07:53 Ordered Completed Studies During Hospitalization Category Date Time Status CT abdomen pelvis w con* [id number] Stat Cat Scan 03/10/25 22:[address] head wo con* [id number] Routine Cat Scan 03/11/25 08:38 Completed US arterial duplex lower extremity bilat [CV arterial Ultrasound 03/11/25 11:48 [place] [id number]] Routine US echo complete [CV. echo complete* [id number]] Stat Ultrasound 03/11/25 00:23 Completed Laboratory Last Values WBC 9.16 10^3/uL (3.29-11.43) 03/10/25 21:55 RBC 4.58 10^6/uL (3.85-5.65) 03/10/25 21:55 Hgb 15.00 g/dL (11.27-16.99) 03/10/25 21:55 Hct 45.0 % (36-47) 03/10/25 21:55 MCV 98.3 fl (85-98) H 03/10/25 21:55 MCH 32.8 pg (27-33) 03/10/25 21:55 MCHC 33.3 g/dL (30-55) 03/10/25 21:55 RDW 14.8 % (12.1-15.1) 03/10/25 21:55 Plt Count Cancelled 03/11/25 01:59 MPV 10.1 fL (7.4-10.4) 03/10/25 21:55 Neut % (Auto) 66.8 % 03/10/25 21:55 Lymph % (Auto) 21.0 % 03/10/25 21:55 [place] % (Auto) 10.7 % 03/10/25 21:55 Eos % (Auto) 0.7 % 03/10/25 21:55 Baso % (Auto) 0.5 % 03/10/25 21:55 Neut # (Auto) 6.12 10^3/uL (1.8-7.7) 03/10/25 21:55 Lymph # (Auto) 1.9 10^3/uL (0.8-4.8) 03/10/25 21:55 [place] # (Auto) 1.0 10^3/uL (0.2-0.9) H 03/10/25 21:55 Eos # (Auto) 0.1 10^3/uL (0.0-0.8) 03/10/25 21:55 Baso # (Auto) 0.1 10^3/uL (0.0-0.1) 03/10/25 21:55 Nucleated RBC % (auto) 0 % 03/10/25 21:55 Nucleated RBCs # 0.0 /100WBC 03/10/25 21:55 ESR 3 mm/hr (0-15) 03/11/25 08:34 APTT > 250.0 SECONDS (23.9-36.7) H* D 03/11/25 19:32 Sodium 131 mmol/L (136-145) L 03/10/25 21:55 Potassium 4.0 mmol/L (3.5-5.1) 03/10/25 21:55 Chloride 94 mmol/L (98-107) L 03/10/25 21:55 Carbon Dioxide 25 mmol/L (22-29) 03/10/25 21:55 Anion Gap 16.0 (5-19) 03/10/25 21:55 BUN 9 mg/dL (8-23) 03/10/25 21:55 Creatinine 0.6 mg/dL (0.5-0.9) 03/10/25 21:55 GFR Calculation Not Reportable 03/10/25 21:55 Glucose 102 mg/dL (65-115) 03/10/25 21:55 Calculated Osmolality 271 mOsm/kg (285-295) L 03/10/25 21:55 Calcium 9.1 mg/dL (8.5-10.5) 03/10/25 21:55 Total Bilirubin 0.3 mg/dL (0.15-1.2) 03/10/25 21:55 AST 23 U/L (0-32) 03/10/25 21:55 ALT 9 U/L (0-33) 03/10/25 21:55 Alkaline Phosphatase 110 U/L (35-105) H 03/10/25 21:55 Troponin T 5th Gen ng/L 21 ng/L (0-10) H 03/11/25 19:49 C-Reactive Protein 3.6 mg/L (0.0-4.9) 03/11/25 08:34 Total Protein 7.1 g/dL (6.6-8.7) 03/10/25 21:55 Albumin 4.0 g/dL (3.5-5.2) 03/10/25 21:55 Globulin 3.1 g/dL (1.3-4.6) 03/10/25 21:55 Triglycerides 133 mg/dL (0-150) 03/11/25 08:34 Cholesterol 188 mg/dL (0-200) 03/11/25 08:34 LDL Cholesterol, Calc 112 mg/dL (50-129) 03/11/25 08:34 HDL Cholesterol 49 mg/dL (60-100) L 03/11/25 08:34 LDL/HDL Ratio 2.29 RATIO (0.00-3.22) 03/11/25 08:34 Cholesterol/HDL Ratio 3.84 mg/dL (0.0-4.40) 03/11/25 08:34 Lipase 24 U/L (13-60) 03/10/25 21:55 Procalcitonin 0.61 ng/mL (0-0.5) H 03/11/25 08:34 Radiology Impressions Abdomen/Pelvis CT 03/10/25 22:57 IMPRESSION: 1. No acute abdominopelvic findings. 2. Bilateral nonobstructive nephrolithiasis. 3. 8 mm hypodensity at the left ventricular apex could represent thrombus. Consider echocardiogram. 4. Additional chronic and incidental findings as above, to include atherosclerosis and colonic diverticulosis. Head CT 03/11/25 08:38 IMPRESSION: No large territorial infarct or intracranial bleed. Recent Clincial Data Last Vital Signs Temp 98.6 F 03/11/25 20:15 Pulse 83 03/11/25 20:15 Resp 20 H 03/11/25 20:15 BP 151/57 03/11/25 20:15 Pulse Ox 96 03/11/25 20:15 O2 Del Method Nasal Cannula 03/11/25 20:15 O2 Flow Rate 2 03/11/25 20:15 Vital Signs Temp Pulse Resp BP Pulse Ox O2 Del Method O2 Flow Rate 03/11/25 20:15 98.6 F 83 20 H 151/57 96 Nasal Cannula 2 03/11/25 20:00 87 19 H 03/11/25 19:45 93 30 H 03/11/25 19:44 98.6 F 03/11/25 19:30 96 20 H 154/110 03/11/25 19:24 101 H 23 H 03/11/25 16:39 74 03/11/25 16:00 79 20 H 176/110 87 L 03/11/25 15:00 71 20 H 155/76 82 L 03/11/25 14:00 64 20 H 164/67 99 03/11/25 13:00 80 19 H 137/69 96 03/11/25 12:00 77 19 H 94 03/11/25 11:45 76 22 H 121/67 95 03/11/25 11:30 74 21 H 120/88 94 03/11/25 11:15 69 25 H 138/68 97 03/11/25 11:00 72 12 138/72 91 03/11/25 10:45 84 23 H 158/81 94 03/11/25 10:30 81 21 H 170/63 94 03/11/25 10:15 89 19 H 176/88 95 03/11/25 10:00 77 20 H 164/73 96 03/11/25 09:45 71 22 H 174/95 98 03/11/25 09:30 75 17 95 03/11/25 09:15 127/104 03/11/25 09:00 81 15 147/75 93 03/11/25 08:45 70 22 H 92 Intake & Output/Weight 03/09/25 03/10/25 03/11/25 03/12/25 06:59 06:59 06:59 06:59 Intake Total 1000 / 1000 222.4 / 222.4 Output Total 475 / 475 250 / 250 Balance 525 / 525 -27.6 / -27.6 Weight 70.579 kg Vitals Last Vital Signs Temp 98.6 F 03/11/25 20:15 Pulse 83 03/11/25 20:15 Resp 20 H 03/11/25 20:15 BP 151/57 03/11/25 20:15 Pulse Ox 96 03/11/25 20:15 O2 Del Method Nasal Cannula 03/11/25 20:15 O2 Flow Rate 2 03/11/25 20:15 TS Medications Medications Acetaminophen (Acetaminophen 325 Mg Tablet) 650 mg PO Q6H PRN PRN Reason: Mild/Mod Pain Or Temp >/= 101 Albuterol/Ipratropium (Ipratropium-Albuterol 3 Ml Neb) 3 ml INHALATION Q6H PRN PRN Reason: SHORTNESS OF BREATH Atorvastatin Calcium (Atorvastatin 10 Mg Tablet) 10 mg PO BEDTIME KADEN Chlordiazepoxide (Chlordiazepoxide 10 Mg Capsule) 10 mg PO Q8H KADEN Duloxetine HCl (Duloxetine 60 Mg Capsule) 60 mg PO DAILY KADEN Folic Acid (Folic Acid 1 Mg Tablet) 1 mg PO DAILY KADEN Heparin Sodium (Porcine) (Heparin 5,000 Unit/Ml Inj 1 Ml) 0 unit IVP PRN PRN; Protocol PRN Reason: Heparin Weight Based Protocol -Subsequent Bolus Hydralazine HCl (Hydralazine 20 Mg/Ml Inj 1 Ml) 10 mg IVP Q4H PRN PRN Reason: SBP>180mmHg or DBP>110mmHG Heparin Sodium/Sodium Chloride (Heparin Drip) 25,000 unit in 500 mls @ 0 mls/hr IV CONT KADEN; Protocol Last Titration: 03/11/25 09:19 Dose: 13.68 unit/kg/hr, 18 mls/hr Lorazepam (Lorazepam 1 Mg Tablet) 1 mg PO Q4H PRN PRN Reason: ANXIETY Last Admin: 03/11/25 13:44 Dose: 1 mg Lorazepam (Lorazepam 2 Mg Tablet) 2 mg PO Q4H PRN; Protocol PRN Reason: WITHDRAWAL Lorazepam (Lorazepam 1 Mg/0.5 Ml Injection) 2 mg IM Q4H PRN; Protocol PRN Reason: ALCOHOL WITHDRAWAL Lorazepam (Lorazepam 1 Mg/0.5 Ml Injection) 2 mg IVP PRN PRN; Protocol PRN Reason: WITHDRAWAL Multivitamins Therapeutic (Multivitamin Therapeutic Tablet) 1 tab PO DAILY [facility] Ondansetron HCl (Ondansetron 2 Mg/Ml Sdv 2 Ml) 4 mg IVP Q4H PRN PRN Reason: NAUSEA AND VOMITING Pregabalin (Pregabalin 150 Mg Capsule) 150 mg PO TID [facility] Last Admin: 03/11/25 15:04 Dose: 150 mg Thiamine Mononitrate (Thiamine 100 Mg Tablet) 100 mg PO DAILY KADEN Discontinued Medications Chlordiazepoxide (Chlordiazepoxide 25 Mg Capsule) 25 mg PO Q6H KADEN Last Admin: 03/11/25 17:56 Dose: Not Given Heparin Sodium (Porcine) (Heparin 5,000 Unit/Ml Inj 1 Ml) 0 unit IVP ONCE ONE; Protocol Stop: 03/11/25 01:52 Last Increment: 03/11/25 02:30 Dose: 3,300 unit Incremental Dosing Total Given: 3,300 unit Sodium Chloride (Sodium Chloride 0.9%) 1,000 mls @ 999 mls/hr IV .Q1H1M ONE Stop: 03/10/25 23:30 Last Infusion: 03/11/25 03:23 Dose: Infused Heparin Sodium/Sodium Chloride (Heparin Drip) 25,000 unit in 500 mls @ 15.785 mls/hr IV .Q24H KADEN Last Admin: 03/11/25 02:01 Dose: Not Given Iohexol (Iohexol 350 Mg/Ml 500 Ml Btl (Per Ml)) 0 ml IV ONCE ONE Stop: 03/10/25 23:45 Last Admin: 03/10/25 23:44 Dose: 100 ml Morphine Sulfate (Morphine 4 Mg/Ml Sdv 1 Ml) 4 mg IVP ONCE ONE Stop: 03/10/25 22:58 Last Admin: 03/11/25 00:06 Dose: 4 mg Ondansetron HCl (Ondansetron 2 Mg/Ml Sdv 2 Ml) 4 mg IVP ONCE ONE Stop: 03/10/25 22:26 Ondansetron HCl (Ondansetron 2 Mg/Ml Sdv 2 Ml) 4 mg IM ONCE ONE Stop: 03/10/25 22:26 Ondansetron HCl (Ondansetron 2 Mg/Ml Sdv 2 Ml) 4 mg IVP ONCE ONE Stop: 03/10/25 22:31 Last Admin: 03/10/25 22:41 Dose: 4 mg Thiamine HCl (Thiamine 100 Mg/Ml 2ml Sdv) 100 mg IM ONCE ONE Stop: 03/11/25 12:05 Last Admin: 03/11/25 12:25 Dose: 100 mg Allergies No Known Allergies Allergy (Verified 03/10/25 21:44) Home Medications albuterol sulfate 90 mcg/actuation aerosol inhaler 2 puff inhalation Q4H PRN cough or wheezing 03/11/25 [History Confirmed 03/11/25] amlodipine 2.5 mg tablet 2.5 mg PO DAILY 03/11/25 [History Confirmed 03/11/25] duloxetine 60 mg capsule,delayed release 60 mg PO DAILY 03/11/25 [History Confirmed 03/11/25] hydroxyzine HCl 25 mg tablet 25 mg PO Q6H PRN Anxiety 03/11/25 [History Confirmed 03/11/25] lisinopril 20 mg tablet 20 mg PO DAILY 03/11/25 [History Confirmed 03/11/25] lovastatin 20 mg tablet 20 mg PO QPM 03/11/25 [History Confirmed 03/11/25] omeprazole 20 mg capsule,delayed release 20 mg PO DAILY 03/11/25 [History Confirmed 03/11/25] pregabalin 150 mg capsule 150 mg PO TID 03/11/25 [History Confirmed 03/11/25] Discharge Plan Discharge Patient Disposition: Xfer Short-Term Hosp Condition: Stable Prescriptions: No Action lisinopril 20 mg tablet 20 mg PO DAILY amlodipine 2.5 mg tablet 2.5 mg PO DAILY omeprazole 20 mg capsule,delayed release(DR/EC) 20 mg PO DAILY hydroxyzine HCl 25 mg tablet 25 mg PO Q6H PRN (Reason: Anxiety) lovastatin 20 mg tablet 20 mg PO QPM albuterol sulfate 90 mcg/actuation HFA aerosol inhaler 2 puff INHALATION Q4H PRN (Reason: cough or wheezing) pregabalin 150 mg capsule 150 mg PO TID duloxetine 60 mg capsule,delayed release(DR/EC) 60 mg PO DAILY Discharge Orders: Transfer Out of Facility (Order); Ordered 03/11/25 Ordered By: Artem Allison Referrals: Blanche Lowery FNP [Primary Care Provider, Unknown] Patient Instructions: Opioid Safety Transfer Attestations Time Spent in Transfer Care: greater than 30 min Quality Metrics Clinical Quality Measures [ No reported AMI, CVA or VTE this stay] Coding Level of Care Code 45082 Total time (in minutes) for Discharge: 45 Diagnoses Mass of left cardiac ventricle I51.89 Chronic obstructive pulmonary disease, unspecified COPD type J44.9 COPD type: unspecified COPD Neuropathy G62.9 Tobacco use disorder F17.200 Left ventricular systolic dysfunction (LVSD) I51.89 Peripheral arterial disease I73.9 Acute thrombus of left ventricle I24.0 Nausea & vomiting R11.2 Medication side effect T88.7XXA Hyponatremia E87.1
[2025-03-11] MEDS: ATORVASTATIN 10 MG TABLET PO (20:31)
--- NOTE | 2025-03-11 21:29 | PC.NURSE ---
Dr. Allison called the unit and updated this nurse that [facility], Dr. Watts has accepted patient. Dr. Allison notified patient's daughter of transfer. This nurse updated patient of transfer. This nurse explained to patient and patient's daughter that we will have to wait until a bed becomes available and transport set up before we can send patient to [facility]. Radio Officer notified.
[2025-03-12] VITALS (23 sets, daily range): BP systolic 106–166; BP diastolic 63–94; PULSE 70–97; RESP 16–27; TEMP 36.6–37.2; O2SAT 90–97
[2025-03-12 05:55] LABS: Basophils # 0.1 10^3/uL (0.0-0.1); Basophils % 0.7 %; Eosinophils # 0.1 10^3/uL (0.0-0.8); Eosinophils % 1.1 %; Hematocrit 47.8 % (36-47); Lymphocytes # 2.1 10^3/uL (0.8-4.8); Mean Corpuscular HGB Conc 31.8 g/dL (30-55); Mean Corpuscular Hemoglobin 32.1 pg (27-33); Mean Corpuscular Volume 100.8 fl (85-98); Mean Platelet Volume 10.8 fL (7.4-10.4); Monocytes # 0.8 10^3/uL (0.2-0.9); Monocytes % 10.8 %; Neutrophils # 4.16 10^3/uL (1.8-7.7); Neutrophils % 58.1 %; Nucleated Red Blood Cells % 0 %; Platelet Count 180 10^3/cmm (157-399); Red Blood Count 4.74 10^6/uL (3.85-5.65); Red Cell Distribution Width 14.8 % (12.1-15.1); White Blood Count 7.15 10^3/uL (3.29-11.43)
[2025-03-12 06:10] LABS: Partial Thromboplastin Time 46.7 SECONDS (23.9-36.7)
[2025-03-12 06:16] LABS: Alanine Aminotransferase 9 U/L (0-33); Albumin Level 3.4 g/dL (3.5-5.2); Alkaline Phosphatase 99 U/L (35-105); Anion Gap 12.8 (5-19); Aspartate Amino Transferase 21 U/L (0-32); Blood Urea Nitrogen 4 mg/dL (8-23); Calcium 8.9 mg/dL (8.5-10.5); Carbon Dioxide 29 mmol/L (22-29); Chloride 102 mmol/L (98-107); Creatinine Clr Calc Pharmacy 58.5305; Globulin 2.9 g/dL (1.3-4.6); Glucose 87 mg/dL (65-115); Magnesium 2.1 mg/dL (1.7-2.3); Osmolality Calculated 286 mOsm/kg (285-295); Phosphorus 5.3 mg/dL (2.5-4.5); Potassium 3.8 mmol/L (3.5-5.1); Sodium 140 mmol/L (136-145); Total Bilirubin 0.3 mg/dL (0.15-1.2); Total Protein 6.3 g/dL (6.6-8.7)
[2025-03-12] MEDS: LORazepam 1 mg Tablet PO (06:19)
[2025-03-12] MEDS: ipratropium-albuterol 3 mL Neb INHALATION ×2 (08:42→14:46)
--- NOTE | 2025-03-12 08:44 | PM.PN ---
Subjective Subjective: The patient is remaining stable. Has no chest pain or any unusual shortness of breath. She seems very anxious and nervous about going through various procedures. But she seems to be willing to go for it because of the family's insistence. Her vital signs remained stable. The blood pressure remains somewhat elevated. Medications: Medication Review Details: Current Medications Acetaminophen (Acetaminophen 325 Mg Tablet) 650 mg PO Q6H PRN PRN Reason: Mild/Mod Pain Or Temp >/= 101 Albuterol/Ipratropium (Ipratropium-Albuterol 3 Ml Neb) 3 ml INHALATION Q6H PRN PRN Reason: SHORTNESS OF BREATH Last Admin: 03/12/25 08:42 Dose: 3 ml Atorvastatin Calcium (Atorvastatin 10 Mg Tablet) 10 mg PO BEDTIME KADEN Last Admin: 03/11/25 20:31 Dose: 10 mg Chlordiazepoxide (Chlordiazepoxide 10 Mg Capsule) 10 mg PO Q8H KADEN Duloxetine HCl (Duloxetine 60 Mg Capsule) 60 mg PO DAILY KADEN Folic Acid (Folic Acid 1 Mg Tablet) 1 mg PO DAILY KADEN Heparin Sodium (Porcine) (Heparin 5,000 Unit/Ml Inj 1 Ml) 0 unit IVP PRN PRN; Protocol PRN Reason: Heparin Weight Based Protocol -Subsequent Bolus Hydralazine HCl (Hydralazine 20 Mg/Ml Inj 1 Ml) 10 mg IVP Q4H PRN PRN Reason: SBP>180mmHg or DBP>110mmHG Heparin Sodium/Sodium Chloride (Heparin Drip) 25,000 unit in 500 mls @ 0 mls/hr IV CONT KADEN; Protocol Last Titration: 03/12/25 06:54 Dose: 11.4 unit/kg/hr, 15 mls/hr Lorazepam (Lorazepam 1 Mg Tablet) 1 mg PO Q4H PRN PRN Reason: ANXIETY Last Admin: 03/12/25 06:19 Dose: 1 mg Lorazepam (Lorazepam 2 Mg Tablet) 2 mg PO Q4H PRN; Protocol PRN Reason: WITHDRAWAL Lorazepam (Lorazepam 1 Mg/0.5 Ml Injection) 2 mg IM Q4H PRN; Protocol PRN Reason: ALCOHOL WITHDRAWAL Lorazepam (Lorazepam 1 Mg/0.5 Ml Injection) 2 mg IVP PRN PRN; Protocol PRN Reason: WITHDRAWAL Multivitamins Therapeutic (Multivitamin Therapeutic Tablet) 1 tab PO DAILY KADEN Ondansetron HCl (Ondansetron 2 Mg/Ml Sdv 2 Ml) 4 mg IVP Q4H PRN PRN Reason: NAUSEA AND VOMITING Pregabalin (Pregabalin 150 Mg Capsule) 150 mg PO TID [facility] Last Admin: 03/11/25 20:31 Dose: 150 mg Thiamine Mononitrate (Thiamine 100 Mg Tablet) 100 mg PO DAILY [facility] Vitals/I&O/Wt Last Vital Signs Temp 98.6 F 03/11/25 20:15 Pulse 71 03/12/25 05:45 Resp 16 03/12/25 04:00 BP 137/77 03/12/25 04:00 Pulse Ox 93 03/12/25 04:00 O2 Del Method Nasal Cannula 03/11/25 20:15 O2 Flow Rate 2 03/11/25 20:15 03/11/25 03/12/25 03/12/25 22:59 06:59 14:59 Intake Total 204.9 / 427.3 101.967 / 529.267 Output Total 400 / 650 Balance -195.1 / -222.7 101.967 / -120.733 Weight last 48 hrs Weight 155 lb 12.8 oz Weight 155 lb 9.6 oz Weight 155 lb 9.6 oz Weight 145 lb Physical Exam Narrative: GENERAL: The patient is alert and oriented times three. Not in any acute distress. HEENT: No significant pallor, icterus or lymphadenopathy.Oral cavity: There are no mucous membrane lesions. NECK: Trachea appears to be central. No masses noted. No JVD or thyromegaly appreciated. RESPIRATORY: Chest is symmetrical. No intercostals muscle retraction or any accessory muscle activation. There is no chest wall tenderness. Breath sounds are heard bilaterally. No rales or rhonchi heard. No evidence of any consolidation. BREASTS: Deferred. HEART: The heart sounds are normal. No S3 or S4. Short systolic murmur in the lower sternal border. No diastolic murmurs no pericardial rub ABDOMEN: No vessel pulsations or distention. No tenderness. No organomegaly appreciated. Bowel sounds are normally heard. : Deferred. RECTAL: Deferred. LYMPHATIC: No lymphadenopathy noted in the neck. EXTREMITIES: No edema or cyanosis. No clubbing. Peripheral pulses are extremely weak both in the groin and at the ankles. MUSCULOSKELETAL: No acute joint deformities or swelling SKIN: There are no significant rashes or ecchymosis NEUROPSYCHIATRIC: The patient is alert and oriented x3. Appears to be in a good mood. No tremors or rigidity noted. Data 03/12/25 05:34 03/12/25 05:34 Other Labs: Laboratory Last Values WBC 7.15 10^3/uL (3.29-11.43) 03/12/25 05:34 RBC 4.74 10^6/uL (3.85-5.65) 03/12/25 05:34 Hgb 15.20 g/dL (11.27-16.99) 03/12/25 05:34 Hct 47.8 % (36-47) H 03/12/25 05:34 MCV 100.8 fl (85-98) H 03/12/25 05:34 MCH 32.1 pg (27-33) 03/12/25 05:34 MCHC 31.8 g/dL (30-55) 03/12/25 05:34 RDW 14.8 % (12.1-15.1) 03/12/25 05:34 Plt Count 180 10^3/cmm (157-399) 03/12/25 05:34 MPV 10.8 fL (7.4-10.4) H 03/12/25 05:34 Neut % (Auto) 58.1 % 03/12/25 05:34 Lymph % (Auto) 29.0 % 03/12/25 05:34 [place] % (Auto) 10.8 % 03/12/25 05:34 Eos % (Auto) 1.1 % 03/12/25 05:34 Baso % (Auto) 0.7 % 03/12/25 05:34 Neut # (Auto) 4.16 10^3/uL (1.8-7.7) 03/12/25 05:34 Lymph # (Auto) 2.1 10^3/uL (0.8-4.8) 03/12/25 05:34 [place] # (Auto) 0.8 10^3/uL (0.2-0.9) 03/12/25 05:34 Eos # (Auto) 0.1 10^3/uL (0.0-0.8) 03/12/25 05:34 Baso # (Auto) 0.1 10^3/uL (0.0-0.1) 03/12/25 05:34 Nucleated RBC % (auto) 0 % 03/12/25 05:34 Nucleated RBCs # 0.0 /100WBC 03/12/25 05:34 ESR 3 mm/hr (0-15) 03/11/25 08:34 APTT 46.7 SECONDS (23.9-36.7) H D 03/12/25 05:34 Sodium 140 mmol/L (136-145) 03/12/25 05:34 Potassium 3.8 mmol/L (3.5-5.1) 03/12/25 05:34 Chloride 102 mmol/L (98-107) 03/12/25 05:34 Carbon Dioxide 29 mmol/L (22-29) 03/12/25 05:34 Anion Gap 12.8 (5-19) 03/12/25 05:34 BUN 4 mg/dL (8-23) L 03/12/25 05:34 Creatinine 0.6 mg/dL (0.5-0.9) 03/12/25 05:34 GFR Calculation Not Reportable 03/12/25 05:34 Glucose 87 mg/dL (65-115) 03/12/25 05:34 Calculated Osmolality 286 mOsm/kg (285-295) 03/12/25 05:34 Calcium 8.9 mg/dL (8.5-10.5) 03/12/25 05:34 Phosphorus 5.3 mg/dL (2.5-4.5) H 03/12/25 05:34 Magnesium 2.1 mg/dL (1.7-2.3) 03/12/25 05:34 Total Bilirubin 0.3 mg/dL (0.15-1.2) 03/12/25 05:34 AST 21 U/L (0-32) 03/12/25 05:34 ALT 9 U/L (0-33) 03/12/25 05:34 Alkaline Phosphatase 99 U/L (35-105) 03/12/25 05:34 Troponin T 5th Gen ng/L 21 ng/L (0-10) H 03/11/25 19:49 C-Reactive Protein 3.6 mg/L (0.0-4.9) 03/11/25 08:34 Total Protein 6.3 g/dL (6.6-8.7) L 03/12/25 05:34 Albumin 3.4 g/dL (3.5-5.2) L 03/12/25 05:34 Globulin 2.9 g/dL (1.3-4.6) 03/12/25 05:34 Triglycerides 133 mg/dL (0-150) 03/11/25 08:34 Cholesterol 188 mg/dL (0-200) 03/11/25 08:34 LDL Cholesterol, Calc 112 mg/dL (50-129) 03/11/25 08:34 HDL Cholesterol 49 mg/dL (60-100) L 03/11/25 08:34 LDL/HDL Ratio 2.29 RATIO (0.00-3.22) 03/11/25 08:34 Cholesterol/HDL Ratio 3.84 mg/dL (0.0-4.40) 03/11/25 08:34 Lipase 24 U/L (13-60) 03/10/25 21:55 Procalcitonin 0.61 ng/mL (0-0.5) H 03/11/25 08:34 Micro: Microbiology 03/11/25 08:34 Blood Culture - Preliminary Blood SPECIMEN COLLECTED 03/11/25 08:20 Blood Culture - Preliminary Blood SPECIMEN COLLECTED A&P Assessment and plan (1) Mass of left cardiac ventricle: Most likely this may represent a myxoma. Thrombus cannot be excluded but my clinical suspicion may be low. Patient apparently has no history for any embolic events. May continue on the IV heparin at this point (2) Left ventricular systolic dysfunction (LVSD): Etiology is not clear. Possibility of underlying coronary disease causing LV dysfunction is a strong consideration especially in view of the multiple risk factors. This needs to be further evaluated. Patient requires a cardiac catheterization to further evaluate the coronary status. Hide discussion with the patient and the family about this. It was decided to have further workup at their facility where cardiac surgery is available, especially in view of the LV mass (3) COPD (chronic obstructive pulmonary disease): May continue on the current management. Patient has a history of heavy smoking abuse. She has some intermittent bronchospasm and is on bronchodilator therapy (4) Neuropathy: Continue on the current management. Has bilateral leg pains which has been going on for some time (5) Tobacco use disorder: Strongly advised to quit smoking. Patient has a history of heavy marijuana use (6) Peripheral arterial disease: Patient was found to have severe peripheral artery disease. She may require peripheral arterial intervention as well. (7) Elevated blood pressure reading: The patient may be started on metoprolol 25 mg PO BID. we will closely monitor the blood pressure Plan Her troponin T was 21 The EKG was unremarkable I had extensive discussion with the patient, and family . As per the family's request, it was decided to transfer this patient to the [facility] in [place] for further evaluation management. She requires a cardiac catheterization to evaluate the coronary status. She may require peripheral artery intervention. 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 I contacted at the [facility] in [place] and discussed the patient condition. Dr. Germain accepted her transfer for further evaluation management. Discussed with Dr. Allison who also concurred with this plan. 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
[2025-03-12] MEDS: duloxetine 60 mg Capsule PO (08:49)
[2025-03-12] MEDS: chlordiazePOXIDE 10 mg Capsule PO (08:49)
[2025-03-12] MEDS: folic acid 1 mg Tablet PO (08:49)
[2025-03-12] MEDS: thiamine 100 mg Tablet PO (08:50)
[2025-03-12] MEDS: multivitamin therapeutic Tablet 1 TAB PO (08:50)
[2025-03-12] MEDS: pregabalin 150 mg Capsule PO ×2 (08:50→15:21)
--- NOTE | 2025-03-12 10:02 | P.PN_ITS ---
Subjective 2 Subjective: - Last night I had spoke to [facility], spoke to transfer center, patient has been accepted in transfer - Patient was seen this morning, current ly alert oriented x 2, following all commands - I had a goals of care discussion with patient this morning, nursing staff at bedside, patient's daughters at bedside - Patient tells me that she understands she has multiple core morbidities with her COPD, her history of alcoholism her peripheral vascular disease - She tells me that her hesitancy about going to [facility] has been being far from her dog - She tells me that her dog and her are very close, so much so that they sleep together, her dog licks off her make-up - It is hurting her to not see her dog a nd being so far from her dog -Addressed her concerns, discussed that as she is in the ICU, there is a risk to other patients, bringing in animal into the ICU is not feasible -She tells me that it is a service dog b ut she does not have papers on it -But she is agreeable to go to [facility] - 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 is does not guarantee that she will have surgery, given her COPD her peripheral vascular disease she is at increased risk - Discussed risk and benefits of surgery - Discussed risk and benefits of doing s urgery, there is significant risk of embolization, risk of stroke, peripheral embolization, sudden cardiac , risk of arrhythmias, outflow obstruction - Discussed benign versus malignant, - After discussing risk benefits of all options, she voiced understanding, all questions answered, shared decision making, with family members at bedside, patient is agreeable to transfer to [facility] for CT surgery evaluation - Discussed plans for today, PT OT, she is wheezing will do chest x-ray, blood work, continue Librium for alcohol withdrawal Vitals/I&O/Wt Last Vital Signs Temp 98 F 03/12/25 09:00 Pulse 97 03/12/25 09:00 Resp 25 H 03/12/25 09:00 BP 155/81 03/12/25 09:00 Pulse Ox 92 03/12/25 09:00 O2 Del Method Nasal Cannula 03/12/25 08:42 O2 Flow Rate 2 03/12/25 08:42 03/11/25 03/12/25 03/12/25 22:59 06:59 14:59 Intake Total 204.9 / 427.3 101.967 / 529.267 120 / 120 Output Total 400 / 650 Balance -195.1 / -222.7 101.967 / -120.733 120 / 120 Weight last 48 hrs Weight 70.67 kg Weight 70.579 kg Weight 70.579 kg Weight 65.771 kg Physical Exam 2 Const: COMMON NORMALS: no acute distress and patient oriented x3 Resp: COMMON NORMALS: normal respiratory effort, No retractions and No use of accessory muscles AUSCULTATION: wheezes Cardio: COMMON NORMALS: regular rate, regular rhythm, S1 normal heart sound present and S2 normal heart sound present RATE: regular rate RHYTHM: r egular rhythm HEART SOUNDS: S1 normal heart sound present and S2 normal heart sound present GI: COMMON NORMALS: Normal to inspection, nondistended, normoactive bowel sounds present and non-tender Extremity: COMMON NORMALS: no pedal edema Neuro: COMMON NORMALS: patient oriented x3, CN's II-XII intact bilaterally, moves all extremities and no focal motor deficits Psych: COMMON NORMALS: mental status grossly normal Data 03/12/25 05:34 03/12/25 05:34 Micro: Microbiology 03/11/25 08:34 Blood Culture - Preliminary Blood NEGATIVE TO DATE 03/11/25 08:20 Blood Culture - Preliminary Blood NEGATIVE TO DATE A&P Assessment and plan (1) Acute thrombus of left ventricle: (2) Nausea & vomiting: (3) Medication side effect: (4) Hyponatremia: (5) COPD (chronic obstructive pulmonary disease): (6) Tobacco use disorder: (7) Neuropathy: (8) Myxoma of heart: (9) Alcohol abuse with withdrawal: Plan Left ventricular myxoma CONCLUSIONS Mild concentric ventricular hypertrophy with an LV ejection fraction of 50%. Mild hypokinesia of the basal inferior wall segment. 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 Grade I/IV diastolic dysfunction (abnormal relaxation filling pattern), normal to mildly elevated filling pressures. Minimally thickened aortic and mitral valves. Mild left atrial enlargement. No similar previous studies are available for comparison - Incidentally found - Continue heparin drip - Continuous telemetry monitoring - Monitor neurological status, CT head no acute findings - Cardiology has been consulted, appreciate recommendations - Plans on transferring to [facility] Mild hypokinesia of the basal inferior wall segment - Cardiology consulted alcohol withdrawl symptoms -Scheduled Librium - CIWA protocol monitor for alcohol withdrawal History of smoking Nausea/vomiting, secondary to alcohol withdrawal Hypovolemic hyponatremia Suspected medication side effect - Hold [id number] nerve medication - Antiemetics as needed Tobacco use disorder - Would benefit from cessation Neuropathy - Continue home medications Prior history of CVA, CT imaging shows left asymptomatic encephalomalacia -patient thinks she might of had a stroke History of meningioma CT HEAD Partially calcified right frontal convexity extra-axial lesion measuring 1.3 cm, likely representing a meningioma. PVD CONCLUSIONS 1. Abnormal resting ABIs of 0.5 bilaterally suggesting severe peripheral artery disease 2. Abnormal Doppler waveforms and velocities suggesting aortoiliac disease. No similar previous studies are available for comparison COPD exacerbation -cxray -solumedrol 40mg iv q12h -aspiration precautions -copd excarbation DVT ppx: Heparin drip Code: Full code PDMP PDMP Reviewed: Not Reviewed Attestations 2 Medical Necessity Statement*: Patient requires hospitalization for left ventricular myxoma requiring transfer to [facility] Diagnoses Acute thrombus of left ventricle I24.0 Nausea & vomiting R11.2 Medication side effect T88.7XXA Hyponatremia E87.1 Chronic obstructive pulmonary disease, unspecified COPD type J44.9 COPD type: unspecified COPD Tobacco use disorder F17.200 Neuropathy G62.9 Myxoma of heart D15.1 Alcohol abuse with withdrawal F10.139
--- NOTE | 2025-03-12 10:03 | XRR_ITS ---
PROCEDURE INFORMATION: Exam: XR Chest Exam date and time: 03/12/2025 10:32 AM Age: 74 years old Clinical indication: Wheezing TECHNIQUE: Imaging protocol: Radiologic exam of the chest. Views: 1 view. COMPARISON: CT chest w con* [id number] 01/20/2023 3:43 PM FINDINGS: Lungs: There is linear vertical atelectasis or scarring at the medial left lung base. No consolidated infiltrates are appreciated. Pleural spaces: Unremarkable. No pleural effusion. No pneumothorax. Heart/Mediastinum: Heart is enlarged. There is calcified plaque involving the aorta. Bones/joints: Unremarkable. XR/XR chest 1V portable [id number] IMPRESSION: 1. Cardiomegaly. 2. Vertical atelectasis or scarring medial left lung base.
[2025-03-12] MEDS: methylPREDNISolone sod succ 40 mg/mL INJ IVP (10:28)
[2025-03-12 10:30] LABS: Free T4 Free Thyroxine 0.83 ng/dL (0.82-1.77); T3 Free 2.3 PG/ML (2.0-4.4); Thyroid Stimulating Hormone 1.28 uIU/mL (0.27-4.20)
--- NOTE | 2025-03-12 10:41 | PC.NURSE ---
up in chair am care done some confusion remains family and pt remains anxious and tearful
[2025-03-12] MEDS: heparin drip 25,000 UNIT/500 ML PREMIX 15 UNIT IV (12:20)
[2025-03-12 16:01] LABS: Partial Thromboplastin Time 45.4 SECONDS (23.9-36.7)
--- NOTE | 2025-03-12 17:15 | PC.NURSE ---
report called to [facility] for transfer , daughter in room.. report to Akbar Areans rn , room 8210 bed 1 phone [phone]
--- NOTE | 2025-03-12 18:13 | PC.NURSE ---
transfer to [facility] via [facility]
[2025-03-13 08:50] LABS: THYROID PEROXIDASE ANTIBODIES >900 IU/mL (<9)
[2025-03-13 13:48] LABS: COMPLEMENT COMPONENT C3C 122 mg/dL (83-193); COMPLEMENT COMPONENT C4C 30 mg/dL (15-57)
[2025-03-13 14:24] LABS: CENTROMERE B ANTIBODY <1.0 NEG AI (<1.0 NEG); JO-1 ANTIBODY <1.0 NEG AI (<1.0 NEG); RNP ANTIBODY <1.0 NEG AI (<1.0 NEG); SCL-70 ANTIBODY <1.0 NEG AI (<1.0 NEG); SJOGREN'S ANTIBODY (SS-A) <1.0 NEG AI (<1.0 NEG); SM ANTIBODY <1.0 NEG AI (<1.0 NEG); SS-B <1.0 NEG AI (<1.0 NEG)
[2025-03-13 15:48] LABS: COMPLEMENT, TOTAL (CH50) 55 U/mL (31-60)
[2025-03-14 21:50] LABS: DNA AB (DS) CRITHIDIA,IFA NEGATIVE (NEGATIVE)
[2025-03-15 15:10] LABS: ANA SCREEN, IFA NEGATIVE (NEGATIVE)
== END 2025-03-12 18:20 | disposition short-term general hospital (02) | DRG 315 ==
LOC: ER 03-11 01:29 → ICU 03-11 01:53 → CSU 03-11 18:35 → ICU 03-11 20:14
PROVIDERS: Emergency Medicine; Internal Medicine Cardiovascular Disease; Admitting Provider Internal Medicine; Emergency Provider Emergency Medicine; PCP Nurse Practitioner Family; Visit Provider Family Medicine
DX: D15.1 Benign neoplasm of heart (principal); E87.1 Hypo-osmolality and hyponatremia; F10.139 Alcohol abuse with withdrawal, unspecified; J44.9 Chronic obstructive pulmonary disease, unspecified; G62.9 Polyneuropathy, unspecified; F17.210 Nicotine dependence, cigarettes, uncomplicated; I73.9 Peripheral vascular disease, unspecified; E86.1 Hypovolemia; G93.89 Other specified disorders of brain; F12.10 Cannabis abuse, uncomplicated; R03.0 Elevated blood-pressure reading, without diagnosis of hypertension; F41.9 Anxiety disorder, unspecified; R73.03 Prediabetes; R11.2 Nausea with vomiting, unspecified; Z86.73 Personal history of transient ischemic attack (TIA), and cerebral infarction without residual deficits
CPT/HCPCS: 36415; 70450; 71045; 74177; 80053; 80061; 83690; 83735; 84100; 84145; 84439; 84443; 84481; 84484; 85025; 85651; 85730; 86140; 86160; 86162; 86235; 86255; 86376; 87040; 93005; 93306; 93925; 94640; 96372; 96374; 96376; 99285; G0378; J1644; J2270; J2405; J2919; J3411; J7030; J9999